=== PATIENT | female | born 1940 | race Caucasian/White ===

== ENCOUNTER → 2016-10-07 | Outpatient (CLI) | payer MEDICARE, BC ==
--- NOTE | 2016-10-08 09:10 | PCVCIMAG ---
APPROVED REPORT Study performed: 10/07/2016 10:29:23 EXAM: Comprehensive 2D, Doppler, and color-flow Echocardiogram Patient Location: Echo lab Status: routine BSA: 1.64 HR: 73 bpmBP: 116/88 mmHg Rhythm: NSR, W/ PACS and PVC's Other Information Study Quality: Good Risk Factors: Cardiac Risk Factors: HTN Indications Diabetes CAD Ischemic Cardiomyopathy 2D Dimensions LVEF(%): 39.33 (>50%) IVSd: 8.74 (7-11mm) LVDd: 44.08 mm PWd: 8.89 (7-11mm) LVDs: 35.72 (25-40mm) Left Atrium: 35.48 (27-40mm) Aortic Root: 28.32 mm LV Single Plane 4CH: 45.44 % LV Single Plane 2CH: 45.19 %Pollard's LVEF: 45.31 % Biplane EF: 44.1 % Volumes Left Atrial Volume (Systole) Single Plane 4CH: 34.26 mLSingle Plane 2CH: 43.18 mL LA ESV Index: 30.00 mL/m2 Aortic Valve AoV Peak Manav.: 1.81 m/s AO Peak Gr.: 13.13 mmHgLVOT Max P.42 mmHg LVOT Max V: 1.07 m/s AI Vmax: 4.15 m/s AI [place]: 2.07 m/s2 AI PHT: 583.47 ms Mitral Valve E/A Ratio: 0.5 MV Decel. Time: 217.07 ms MV E Max Manav.: 0.42 m/s MV A Manav.: 0.79 m/s IVRT: 145.33 ms Pulmonary Valve PV Peak Manav.: 0.74 m/sPV Peak Gr.: 2.25 mmHg Pulmonary Vein P Vein S: 0.33 m/sP Vein A: 0.53 m/s P Vein D: 0.55 m/sP Vein A Dur.: 117.6 msec P Vein S/D Ratio: 0.60 Tricuspid Valve TR Peak Manav.: 2.46 m/s TR Peak Gr.: 24.24 mmHg Left Ventricle The left ventricle is normal size. There is normal left ventricular wall thickness. Left ventricular systolic function is mildly decreased. Basal septal and inferior basal-mid akinesis. LVEF is 45%. Grade I - abnormal relaxation pattern. Right Ventricle The right ventricle is normal size. The right ventricular systolic function is normal. Atria Left atrium is mildly dilated. Aneurysmal atrial septal motion. Right atrium is mildly dilated. Aortic Valve The aortic valve is mildly sclerotic Mild aortic regurgitation. There is no aortic valvular stenosis. Mitral Valve The mitral valve is normal in structure. Mild mitral regurgitation. No evidence of mitral valve stenosis. Tricuspid Valve The tricuspid valve is normal in structure. Mild tricuspid regurgitation with PAP of 31 mmHg. Pulmonic Valve The pulmonary valve is normal in structure. Mild pulmonic regurgitation. Great Vessels The aortic root is normal in size. IVC is normal in size and collapses with >50% inspiration Pericardium There is no pericardial effusion. <Conclusion> Left ventricular systolic function is mildly decreased. Basal septal and inferior basal-mid akinesis. LVEF is 45%. Grade I - abnormal relaxation pattern. The aortic valve is mildly sclerotic. Mild aortic regurgitation, no stenosis. The mitral valve is normal in structure. Mild mitral regurgitation. Mild tricuspid regurgitation with PAP of 30 mmHg. There is no pericardial effusion.
== END | disposition home or self-care (01) ==
LOC: PCVCIMAG 09:40
PROVIDERS: ATTEND Internal Medicine
DX: I08.3 Combined rheumatic disorders of mitral, aortic and tricuspid valves (principal); I65.23 Occlusion and stenosis of bilateral carotid arteries; I25.5 Ischemic cardiomyopathy; R29.898 Other symptoms and signs involving the musculoskeletal system; E11.9 Type 2 diabetes mellitus without complications; I49.3 Ventricular premature depolarization
CPT/HCPCS: 93306; 93880

== ENCOUNTER → 2017-04-30 | Outpatient (CLI) | payer MEDICARE, BC | END | disposition home or self-care (01) | LOC: PCVCCLINIC 14:58 | DX: I25.10 Atherosclerotic heart disease of native coronary artery without angina pectoris (principal); I25.5 Ischemic cardiomyopathy; I47.1 Supraventricular tachycardia; E78.5 Hyperlipidemia, unspecified; I10 Essential (primary) hypertension; I65.23 Occlusion and stenosis of bilateral carotid arteries; R94.31 Abnormal electrocardiogram [ECG] [EKG]; F03.90 Unspecified dementia, unspecified severity, without behavioral disturbance, psychotic disturbance, mood disturbance, and anxiety; E11.9 Type 2 diabetes mellitus without complications; Z79.899 Other long term (current) drug therapy | CPT/HCPCS: 80061; 93005; G0463 ==